=== PATIENT | female | born 1980 | race Native Hawaiian/Other Pacific Islander ===

== ENCOUNTER 2021-09-17 11:52 | Outpatient (CLI) | payer BC | END 2021-09-17 21:19 | disposition home or self-care (01) | LOC: RAD 11:52 | PROVIDERS: ATTEND Nurse Practitioner Family | DX: M79.642 Pain in left hand (principal) ==

== ENCOUNTER 2022-05-07 15:28 | Outpatient (CLI) | payer BC | END 2022-05-07 19:56 | disposition home or self-care (01) | LOC: MAMMO 15:28 | PROVIDERS: ATTEND Obstetrics & Gynecology | DX: Z12.31 Encounter for screening mammogram for malignant neoplasm of breast (principal) ==

== ENCOUNTER 2022-10-27 07:54 | Outpatient (CLI) | payer BC | END 2022-10-27 20:05 | disposition home or self-care (01) | LOC: US 07:54 | PROVIDERS: ATTEND Nurse Practitioner | DX: R19.09 Other intra-abdominal and pelvic swelling, mass and lump (principal) ==